=== PATIENT | female | born 1955 | race Caucasian/White ===

== ENCOUNTER 2020-01-24 08:03 | Emergency (ER) | payer MEDICARE ==
[2020-01-24 08:11] VITALS: RESP 18
[2020-01-24] MEDS ORDERED: AMOXIC-POT CLAV 875-125MG 1 EACH TAB PO STA (08:55)
[2020-01-24] MEDS ORDERED: AMOXIC-POT CLAV 875MG STARTER PACK 2 TAB BTL PO STA (08:55)
[2020-01-24] MEDS ORDERED: MORPHINE SULFATE 4 MG/ML SYRINGE IM STA (08:56)
[2020-01-24] MEDS ORDERED: ONDANSETRON 4 MG ODT STARTER PACK 2 TAB BTL PO STA (08:56)
[2020-01-24] MEDS ORDERED: ONDANSETRON ODT 4 MG TAB PO STA (08:56)
[2020-01-24] MEDS ORDERED: ACET/COD 300 MG/30 MG STARTER PACK 6 TAB BTL PO STA (08:57)
--- NOTE | 2020-01-24 09:01 | ED ---
General Adult HPI - General Chief complaint: Dental/Oral Stated complaint: Dental Time Seen by Provider: 01/24/20 08:17 Source: patient, RN notes reviewed, old records reviewed Mode of arrival: ambulatory Limitations: no limitations - History of Present Illness Initial comments: 64 old female patient with a chief complaint dental pain for the last 2 weeks. Patient reports that she has been seen by dentist on 2 occasions and they believe that she may have TMJ. Patient reports that 2 days ago she began to develop swelling in her right lateral jaw region. She denies any other complaints at this time. Systemic: Pt denies fatigue, fever/chills, rash. Pt denies weakness, night sweats, weight loss. Neuro: Pt denies headache, visual disturbances, syncope or pre-syncope. HEENT: Pt denies ocular discharge or irritation, otalgia, rhinorrhea, pharyngitis or notable lymphadenopathy. Cardiopulmonary: Pt denies chest pain, SOB, heart palpitations, dyspnea on exertion. Abdominal/GI: Pt denies abdominal pain, n/v/d. : Pt denies dysuria, burning w/ urination, frequency/urgency. Denies new onset urinary or bowel incontinence. MSK: Pt denies myalgia, loss of strength or function in extremities. Neuro: Pt denies new onset weakness, paresthesias. - Related Data Previous Rx's Medication Instructions Recorded Amoxicillin/Potassium Clav 1 each PO Q12HR 7 Days #14 tab 01/24/20 [Augmentin 875-125 Tablet] Allergies Allergy/AdvReac Type Severity Reaction Status Date / Time codeine AdvReac Nausea Verified 01/24/20 08:11 Review of Systems ROS Statement: Those systems with pertinent positive or pertinent negative responses have been documented in the HPI. ROS Other: All systems not noted in ROS Statement are negative. Past Medical History Past Medical History: No Reported History History of Any Multi-Drug Resistant Organisms: None Reported Past Surgical History: Appendectomy, Hysterectomy Additional Past Surgical History / Comment(s): nerve ablation, urtheral stretching Past Psychological History: No Psychological Hx Reported Smoking Status: Never smoker Past Alcohol Use History: None Reported Past Drug Use History: None Reported General Exam - General Exam Comments Initial Comments: Constitutional: NAD, AOX3, Pt has pleasant affect. HEENT: NC/AT, trachea midline, neck supple, no lymphadenopathy. Posterior pharynx non erythematous, without exudates. External ears appear normal, without discharge. The right lateral gum mildly tender to palpation. Mild amount of erythema. Mild amount of soft tissue swelling. No broken teeth. No abscess. Mucous membranes moist. EOM intact. There is no scleral icterus. No pallor noted. Cardiopulmonary: RRR, no murmurs, rubs or gallops, no JVD noted. Lungs CTAB in anterior and posterior [place]. No peripheral edema. Neuro: CN II-XII grossly intact. No nuchal rigidity. No raccon eyes, no marks sign, no hemotympanum. No cervical spinal tenderness. MSK: Full active ROM in upper and lower extremities. Limitations: no limitations Course Vital Signs 01/24/20 08:07 Temperature 98.7 F Pulse Rate 94 Respiratory 18 Rate Blood Pressure 135/83 O2 Sat by Pulse 97 Oximetry Medical Decision Making - Medical Decision Making 64-year-old female patient presents to ED for evaluation of right dental pain. Reports has been ongoing for the last 2 weeks. Patient developed swelling approximately 2 days ago. Has been lots of discomfort. Patient also has stable, afebrile. Physical exam displayed mild mild soft tissue swelling right lateral jaw region. There is tenderness of the gums and some mild erythema no dental abscess. Patient initiated on antibiotics and will follow-up with her primary care provider or dentist for further evaluation which would ER if condition worsens. Case discussed with Dr. Negron. Disposition Clinical Impression: Dental infection Disposition: HOME SELF-CARE Instructions (If sedation given, give patient instructions): Toothache (ED) Additional Instructions: Follow-up with primary care provider tomorrow. Take medications as directed. Return to ER if condition worsens. Prescriptions: Amoxicillin/Potassium Clav [Augmentin 875-125 Tablet] 1 each PO Q12HR 7 Days #14 tab Is patient prescribed a controlled substance at d/c from ED?: No Referrals: Nonstaff,Physician [Primary Care Provider] - 1-2 days
[2020-01-24 09:16] VITALS: BP 128/70; PULSE 71; TEMP 98.1
== END 2020-01-24 09:13 | disposition home or self-care (01) ==
LOC: EC 08:03
DX: K04.7 Periapical abscess without sinus (principal); Z88.5 Allergy status to narcotic agent
CPT/HCPCS: 99283; 96372; J2270; S0119

== ENCOUNTER → 2022-12-10 | Outpatient (CLI) | payer MEDICARE ==
--- NOTE | 2022-12-12 05:29 | MR ---
EXAMINATION TYPE: MR knee LT wo con DATE OF EXAM: 12/10/2022 COMPARISON: Outside left knee x-ray November 27, 2022 HISTORY: LEFT KNEE INNER PAIN AND SWELLING SINCE SEPTEMBER 13 TECHNIQUE: Multiplanar, multisequence images of the knee is performed without IV contrast. FINDINGS: MEDIAL MENISCUS: There is horizontal increased signal in the central body extends into posterior horn and likely abuts the inferior articular surface. LATERAL MENISCUS: Anterior and posterior horns are intact without tear. CRUCIATE LIGAMENTS: The anterior and posterior cruciate ligaments are intact and unremarkable. COLLATERAL LIGAMENTS: The medial collateral ligament and lateral collateral ligament complex are inta ct and unremarkable. EXTENSOR MECHANISM: Visualized quadriceps and patellar tendons are intact. EFFUSION: No significant suprapatellar joint effusion. POPLITEAL CYST: No popliteal/marroquin cyst. TRICOMPARTMENT SPACES: Mild to moderate tricompartment joint space loss. Mild spurring patellofemoral compartment. CARTILAGE: Chondromalacia patella with cartilaginous loss greatest long superior aspect of the tool lapper hand ior patellar pole medially. BONE MARROW SIGNAL: Areas of heterogeneous diminished T1 and increased T2 signal. At sites of most pr ominent cartilaginous loss along the superior patella. OTHER: No additional significant abnormality is appreciated. IMPRESSION: 1. At least intrasubstance suspected full-thickness tear through the posterior horn and central body of the medial meniscus. 2. Tricompartment degenerative changes that are at least moderate to borderline severe in the patello femoral compartment as detailed above.
== END | disposition home or self-care (01) ==
LOC: RADMRIMAIN 21:15
PROVIDERS: ATTEND Orthopaedic Surgery
DX: S83.242A Other tear of medial meniscus, current injury, left knee, initial encounter (principal); M17.12 Unilateral primary osteoarthritis, left knee

== ENCOUNTER → 2023-01-03 | Outpatient (CLI) | payer MEDICARE ==
[2023-01-03 15:33] LABS: Basophils # (A) 0.04 X 10*3/uL (0.00-0.10); Basophils % (A) 0.7 %; Eosinophils # (A) 0.11 X 10*3/uL (0.04-0.35); HCT 43.7 % (37.2-46.3); Lymphocytes # (A) 1.87 X 10*3/uL (0.90-5.00); Lymphocytes % (A) 34.2 %; MCH 29.5 pg (27.0-32.0); MCV 92.2 FL (80.0-97.0); Mean Platelet Volume 9.8 FL (9.5-12.2); Monocytes # (A) 0.59 X 10*3/uL (0.20-1.00); Monocytes % (A) 10.8 %; NRBC Per 100 WBC 0 X 10*3/uL (0.00-0.01); Neutrophils # (A) 2.85 X 10*3/uL (1.80-7.70); Neutrophils % (A) 52.1 %; Platelet Count 272 X 10*3/uL (140-440); RBC 4.74 X 10*6/uL (4.10-5.20); WBC 5.47 X 10*3/uL (4.50-10.00)
[2023-01-03 15:55] LABS: Potassium 4.4 mmol/L (3.5-5.5)
== END | disposition home or self-care (01) ==
LOC: LABWHC1 10:22
PROVIDERS: ATTEND Orthopaedic Surgery
DX: Z01.818 Encounter for other preprocedural examination (principal); M23.91 Unspecified internal derangement of right knee; R00.1 Bradycardia, unspecified
CPT/HCPCS: 36415; 80051; 85025; 93005

== ENCOUNTER 2023-01-14 11:06 | Day surgery (SDC) | payer MEDICARE ==
[2023-01-09 12:57] VITALS: BMI 29.2
--- NOTE | 2023-01-13 13:15 | HP ---
HISTORY AND PHYSICAL DATE OF SURGERY: 01/14/2023 HISTORY OF PRESENT ILLNESS: Ciarra Burnett is a 67-year-old patient seen with symptomatic left knee pain. We discussed options. She elected to proceed with left knee arthroscopy. Consent regarding the procedure was obtained. PAST MEDICAL HISTORY: Hyperlipidemia, hypertension. SURGICAL HISTORY: Appendectomy, hysterectomy. DAILY MEDICATIONS: 1. Celebrex. 2. Estradiol. 3. Fenofibrate. ALLERGIES: None. SOCIAL HISTORY: She denies current tobacco use. PHYSICAL EVALUATION OF LEFT KNEE: Range of motion is 0 to 130 degrees. Mild effusion. Tenderness in medial joint line. Positive medial Phoebe's. Ligaments stable. Hip rotation without pain. Distal neurovascular exam intact. IMAGING: Previous left knee x-rays revealed mild osteoarthritis of the left knee. MRI revealed medial meniscal tear. IMPRESSION: 1. Internal derangement of left knee with medial meniscal tear. 2. Hypertension. 3. Hyperlipidemia. PLAN: Left knee arthroscopy with partial medial meniscectomy and debridement. MMODL / IJN: [id number] /
[~2023-01-14 11:06] MED LIST: DEXAMETHASONE SOD PHOSPHATE 4 MG/ML 1 ML VIAL IV ONE; LACTATED RINGERS 1,000 ML IV SCH; ONDANSETRON 4 MG/2 ML VIAL IVP ONE; fentaNYL (PF) 50 MCG/ML 2 ML AMP IV PRN
[2023-01-14] MEDS ORDERED: PROPOFOL 10 MG/ML 20 ML VIAL IV ONE (12:26)
[2023-01-14] MEDS ORDERED: fentaNYL (PF) 50 MCG/ML 2 ML AMP ONE (12:26)
[2023-01-14] MEDS ORDERED: MIDAZOLAM 2 MG/2 ML VIAL ONE (12:26)
[2023-01-14] MEDS ORDERED: LIDOCAINE 2% INJ 20 MG/ML (2 ML VIAL) ONE (12:26)
[2023-01-14] MEDS ORDERED: BUPIVACAINE (PF) 0.25% 30 ML VIAL SQ ONE ×2 (12:49→13:00)
[2023-01-14 13:16] VITALS: TEMP 96.9
--- NOTE | 2023-01-14 13:17 | P.OP ---
Date of Procedure: 01/14/23 Preoperative Diagnosis: Internal derangement left knee Postoperative Diagnosis: 1. Tear medial and lateral meniscus left knee 2. Grade 4 chondromalacia medial femoral condyle left knee 3. Reactive synovitis medial, lateral and suprapatellar compartments left knee 4. Grade 3 chondromalacia patella left knee Procedure(s) Performed: 1. Arthroscopic partial medial and lateral meniscectomy left knee 2. Arthroscopic microfracture medial femoral condyle left knee 3. Arthroscopic partial synovectomy medial, lateral and suprapatellar compartments left knee 4. Arthroscopic chondroplasty medial femoral condyle left knee Anesthesia: CARLOS ALBERTOA, local Surgeon: Jaylan Gimenez Estimated Blood Loss (ml): 7 Pathology: none sent Condition: stable Disposition: PACU Indications for Procedure: 67-year-old patient seen with progressive left knee pain. After having treatment options discussed, she elected to proceed with arthroscopy. Operative Findings: See description of procedure Description of Procedure: Patient was taken to the operative suite. Patient underwent a general anesthetic by the department of anesthesia. Patient was given preoperative antibiotics. The left lower extremity was placed in a well-padded arthroscopic leg lopez. The left leg was prepped and draped in the normal sterile orthopedic fashion. A lateral parapatellar and suprapatellar incision was made. Trochars were inserted. Arthroscopy was initiated. Suprapatellar pouch revealed diffuse thick reactive synovitis. The patellofemoral joint appeared to articulate congruently. There was grade 3 chondromalacia of the patella with no steochondral tears. The scope was guided into the medial gutter. No loose bodies or plica were identified. The scope was then guided into the medial compartment. A medial parapatellar incision was made. Trocar inserted followed by probe. Was a complex tear involving the posterior horn and body medial meniscus. There were grade 3/4 chondromalacia changes of the medial femoral condyle and area of grade 4 chondromalacia involving the posterior aspect of the tibial plateau. There was thick reactive synovitis anteriorly. I performed a partial medial meniscectomy getting down to stable meniscal tissue. I performed a chondroplasty of the medial femoral condyle getting down to stable osteochondral tissue. I performed a partial synovectomy decompressing the reactive synovitis. I did note an area of exposed bone along the medial femoral condyle measuring about a centimeter in diameter on the weightbearing surface. I introduced a microfracture awl and performed a microfracture to the area of exposed bone penetrating the bone with resultant bleeding at the microfracture site. The residual meniscus was probed and was found to be stable. The residual osteochondral surface appeared stable. There was good decompression of the synovitis. Scope and probe were then guided into the intercondylar notch. Cruciates were identified, probed and found to be stable. The scope and probe were then guided into lateral compartment. There was a radial tear involving the mid body and posterior horns of the lateral meniscus. There were grade 1 chondromalacia changes without tears. There was some thick reactive synovitis anteriorly. I performed a partial lateral meniscectomy getting down to stable meniscal tissue. I performed a partial synovectomy decompressing the reactive synovitis. The residual meniscus was found to be stable. There was good decompression of the synovitis. The scope was in guided back into the suprapatellar compartment. I introduced a motorized shaver into the suprapatellar compartment. I debrided some piecemeal fragments of meniscus I encountered. I performed a partial synovectomy. The shaver was removed. There was good decompression of the synovitis. I again noted an area of grade 3 chondromalacia of that patella without osteochondral tears. I now took one more look around the entire knee, no residual debris. Instruments were now removed from the joint. The joint was infiltrated with .25% Marcaine. Steri-Strips were applied to the portal sites. Sterile dressings were applied. The patient was placed into a PHILIPPE hose. No tourniquet was utilized. The patient was awakened, transferred to a bed and taken to recovery stable satisfactory condition.
[2023-01-14] MEDS ORDERED: HYDROcodone/APAP 5-325MG 1 EACH TAB ONE (13:50)
[2023-01-14 13:56] VITALS: RESP 18
[2023-01-14 14:15] VITALS: BP 147/82; PULSE 54
== END 2023-01-14 14:37 | disposition home or self-care (01) ==
LOC: OR 11:06
PROVIDERS: ATTEND Orthopaedic Surgery
DX: S83.242A Other tear of medial meniscus, current injury, left knee, initial encounter (principal); S83.282A Other tear of lateral meniscus, current injury, left knee, initial encounter; M65.862 Other synovitis and tenosynovitis, left lower leg; M22.42 Chondromalacia patellae, left knee; I10 Essential (primary) hypertension; E78.5 Hyperlipidemia, unspecified; M79.7 Fibromyalgia; M19.90 Unspecified osteoarthritis, unspecified site; Z79.1 Long term (current) use of non-steroidal anti-inflammatories (NSAID); Z88.5 Allergy status to narcotic agent; Z79.890 Hormone replacement therapy; Z79.899 Other long term (current) drug therapy
CPT/HCPCS: 29880; 29879; J2250; J1100; J0690; J2405; J3010; J2704; J2001